=== PATIENT | male | born 1965 | race Caucasian/White ===

== ENCOUNTER 2023-09-16 05:30 | Emergency (ER) | payer OTHER ==
[2023-09-16] MEDS ORDERED: Ketorolac Tromethamine 30 MG/ML VIAL ONE (06:17)
== END 2023-09-16 06:57 ==
LOC: CSHERS 05:30 → EEVIPCON 05:30 → CSHERS 06:57
DX: M79.18 Myalgia, other site (principal); K21.9 Gastro-esophageal reflux disease without esophagitis; Z79.899 Other long term (current) drug therapy
CPT/HCPCS: 36416; 96372; J1885